=== PATIENT | female | born 1980 | race Caucasian/White ===

== ENCOUNTER 2017-04-21 00:03 | Emergency (ER) | payer OTHER ==
[~2017-04-21] VITALS: Ht 154.9 cm; Wt 93.0 kg
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
[2017-04-21] MEDS ORDERED: NAPR500T PO (07:15)
[2017-04-21 07:19] VITALS: BP 132/62
== END 2017-04-21 07:32 | disposition home or self-care (01) ==
LOC: EDBD 00:03 → M ED 00:38
DX: S90.31XA Contusion of right foot, initial encounter (principal); V48.5XXA Car driver injured in noncollision transport accident in traffic accident, initial encounter; Y92.410 Unspecified street and highway as the place of occurrence of the external cause; Y93.89 Activity, other specified; Y99.8 Other external cause status